=== PATIENT | male | born 1940 | race Caucasian/White ===

== ENCOUNTER 2019-01-21 16:58 | Emergency (ER) | payer OTHER ==
[~2019-01-21] VITALS: Ht 165.1 cm; Wt 90.7 kg
[2019-01-21] MEDS ORDERED: ZANTAC300 MG (17:14)
[2019-01-21] MEDS ORDERED: AMLODIPINE BESYL5 MG (17:14)
[2019-01-21] MEDS ORDERED: ZESTRIL30 MG (17:14)
[2019-01-21] MEDS ORDERED: METOPROLOL SUCC50 MG (17:15)
[2019-01-21] MEDS ORDERED: NEURONTIN300 MG (17:15)
[2019-01-21] MEDS ORDERED: GLIMEPIRIDE1 MG (17:15)
[2019-01-21] MEDS ORDERED: ARICEPT5 MG (17:15)
== END 2019-01-21 22:24 | disposition home or self-care (01) ==
LOC: ER 16:58
DX: K29.60 Other gastritis without bleeding (principal)